=== PATIENT | female | born 1970 | race Caucasian/White ===

== ENCOUNTER 2022-12-01 12:53 | Emergency (ER) | payer MEDICAID ==
[~2022-12-01] VITALS: Ht 152.4 cm; Wt 54.2 kg
[2022-12-01 13:17] VITALS: BP 123/91; PULSE 80; TEMP 99.1; O2SAT 99
[2022-12-01] MEDS ORDERED: diazepam 5mg tablet PO ONE (13:45)
[2022-12-01] MEDS ORDERED: ketorolac trometh inj. 60 MG/2 ML VIAL IM ONE (13:45)
[2022-12-01] MEDS ORDERED: CYCL-1 PO (13:49)
[2022-12-01] MEDS ORDERED: LIDO700A47 TP (13:49)
[2022-12-01 13:54] VITALS: RESP 17
== END 2022-12-01 14:21 | disposition home or self-care (01) ==
LOC: ER 12:53
DX: M43.6 Torticollis (principal); F41.9 Anxiety disorder, unspecified; G89.29 Other chronic pain; Z88.5 Allergy status to narcotic agent; Z79.899 Other long term (current) drug therapy
CPT/HCPCS: 96372; 99283; J1885